=== PATIENT | male | born 1995 | race Caucasian/White ===

== ENCOUNTER 2022-03-29 10:32 | Emergency (ER) | payer OTHER, SELFPAY ==
[2022-03-29 10:42] VITALS: BP 134/87; PULSE 91; RESP 18; TEMP 36.9; O2SAT 100
--- NOTE | 2022-03-29 11:09 | ED.URI ---
HPI - URI/Sore Throat General Chief Complaint: Upper Respiratory Infection Stated Complaint: Headache,Cough,Congestion Time Seen by Provider: 03/29/22 11:04 Source: patient Mode of arrival: ambulatory Limitations: no limitations History of Present Illness HPI Narrative: Patient presents today with a 6 day history of cough, sore throat, congestion. Reports he ran a fever initially, but is no longer. Girlfriend was diagnosed with influenza a recently. He has been taking DayQuil, NyQuil, and Mucinex with mild relief. Denies shortness of breath or chest pain. Related Data Home Medications Medication Instructions Recorded Confirmed No Home Medications 03/29/22 03/29/22 Allergies Allergy/AdvReac Type Severity Reaction Status Date / Time No Known Allergies Allergy Verified 03/29/22 10:47 Review of Systems Review of Systems: CONSTITUTIONAL: Denies body aches, chills, or sweats.+ Fever-resolved EYES: Denies visual changes, redness, or discharge. ENT: Denies rhinorrhea, or otalgia.+ congestion, sore throat CARDIOVASCULAR: Denies chest pain, palpitations, or edema. RESPIRATORY:+ cough, shortness of breath GASTROINTESTINAL: Denies abdominal pain, nausea, vomiting, or diarrhea. GENITOURINARY: Denies dysuria or hematuria. SKIN: Denies rash, itching, or wounds. MUSCULOSKELETAL: Denies back pain, joint pain, or myalgia. NEUROLOGIC: Denies headache, numbness, tingling, or weakness. PSYCH: Denies depression or anxiety. PMFSH Comments At time of signature, I have reviewed and agree with nursing past medical, surgical, social and family history unless otherwise noted. Please see nursing chart for further information. There is no relevant family history pertinent to the presenting complaint Exam Narrative: GENERAL: Well-appearing, well-nourished, and in no acute distress. HEAD: Normocephalic, atraumatic. EYES: EOMI. No redness or drainage. Conjunctivae normal. ENT: Mucous membranes pink and moist. Nares clear. No rhinorrhea. TMs normal bilaterally. Throat mildly erythematous without edema or exudate. Uvula midline. NECK: Normal AROM. Supple. No lymphadenopathy. CHEST: No respiratory distress. Clear to auscultation. HEART: Regular rate and rhythm. No murmur appreciated. Normal peripheral pulses. EXTREMITIES: Normal range of motion. No edema. SKIN: Warm, dry, no rash. Capillary refill normal. Normal skin turgor. NEURO: No focal deficits. Alert and oriented x3. Gait steady. PSYCH: Normal affect. No signs of depression or anxiety. Course Course Level of Care: Express Care Visit Vital Signs Vital signs: Vital Signs Temperature 98.4 F 03/29/22 10:42 Pulse Rate 91 03/29/22 10:42 Respiratory Rate 18 03/29/22 10:42 Blood Pressure 134/87 03/29/22 10:42 Pulse Oximetry 100 03/29/22 10:42 Oxygen Delivery Room Air 03/29/22 10:42 Temperature 98.4 F 03/29/22 10:42 Pulse Rate 91 03/29/22 10:42 Respiratory Rate 18 03/29/22 10:42 Blood Pressure 134/87 03/29/22 10:42 Pulse Oximetry 100 03/29/22 10:42 Oxygen Delivery Room Air 03/29/22 10:42 Reviewed. Pt has been instructed to follow up with his PCP regarding his elevated blood pressure today. MDM - URI/Sore Throat Differential Diagnosis Differential diagnosis: Likely upper respiratory infection, sinusitis, viral infection and influenza Lab Data Attestation: I reviewed the patient's lab results. Labs: Influenza A Screen Negative Reference Range: Negative Influenza B Screen Negative Reference Range: Negative Critical Care Time Critical Care Time Critical Care Time: No Discharge Plan Discharge Clinical Impression: Influenza A Patient Disposition: Home, Self-Care Condition: Stable Instructions: Influenza (DC) Additional Instructions: You have tested positive for influenz
== END 2022-03-29 11:17 | disposition home or self-care (01) ==
PROVIDERS: Emergency Provider Nurse Practitioner
DX: J10.1 Influenza due to other identified influenza virus with other respiratory manifestations (principal)
CPT/HCPCS: 87804; 99213; G0463

== ENCOUNTER 2025-01-08 23:21 | Emergency (ER) | payer SELFPAY ==
[2025-01-08 23:21] VITALS: BP 126/103; PULSE 94; RESP 16; TEMP 37.3; O2SAT 100
--- OUTSIDE RECORDS SUMMARY | 2025-01-08 23:24 | XMS_ITS | Clinical Summary ---
Author Organization [facility] Address [address] [place] [address] Care Team Providers Care Cone Examiner Name Role Phone Unknown, Notinfile Primary Care Provider Unavail able Allergies No known active allergies Medications busPIRone (BUSPAR) 10 mg tablet Take by mouth Active amoxicillin (amoxicillin) 500 mg tablet/capsule Take 1 tablet/capsule (500 mg total) by mouth 3 (three) times a day 30 tablet/capsu le 9 Active Additional Information Patient not taking.Reported on 09/13/2024 naproxen (NAPROSYN) 500 mg tablet Take 1 tablet (500 mg total) by mouth 2 (two) times a day as needed for pain Take with food. 30 tablet 0 Active Additional Information Patient not taking.Reported on 09/13/2024 Active Problems Problem Noted Date Diagnosed Date Atypical chest pain 08/26/2017 Assessment & Plan (08/26/2017 7:03 PM CDT): Secondary to panic attack. Currently does not have any chest pain. EKG negative for ST changes x2 Troponin x2 negative. Patient is being discharged with recommendations to avoid marijuana use, regular exercise. Patient's mother is worried about his intermittent symptoms. Will give prescription for outpatient stress echocardiogram. This way echocardiogram will also evaluate the septum. The this was discussed with the patient patient's mother present in the room. They agreed with the plan. He is going to schedule his stress test as soon as possible. Meantime will avoid any kind of recreational drug use, avoid smoking. Marijuana use 08/26/2017 Assessment & Plan (08/26/2017 5:29 PM CDT): The patient smokes marijuana occasionally. Last marijuana use was yesterday and before that it was about a week ago. Both marijuana use was associated with panic attack tachycardia. Recommended avoid a smoking pot. Patient verbalized understanding. Panic attack 08/26/2017 Assessment & Plan (08/26/2017 7:02 PM CDT): The patient describes classic panic attack symptoms after smoking marijuana. This was discussed with the patient. He understands what is happening to him. He already had an idea that he is having panic attack. His brother is present in the room and he has panic attacks 2. So apparently this runs in the family. Recommended regular exercise, will give propranolol small dose p.r.n.. Recommending establish primary care physician. Also I would like to mention that on August 15 patient was in our emergency room with abdominal pain. With was extensively worked up and did not find any acute issues, he had CT scan of abdomen and pelvis being normal CT, urinalysis did not show any infection and his blood work was normal. Tobacco use 08/26/2017 Assessment & Plan (08/26/2017 5:36 PM CDT): Patient is very motivated to quit smoking. His last cigarette was yesterday. Smoking cessation recommended and counseling was provided. Social History Tobacco Use Types Packs/Day Years Used Date Smoking Tobacco: Every Day Smokeless Tobacco: Never Alcohol Use Standard Drinks/Week Comments Yes 0 (1 standard drink = 0.6 oz pur e alcohol) Sex and Gender Information Value Date Recorded Sex Assigned at Not on file Legal Sex Male 11:28 PM ICU STAFF NURSE Gender Identity Not on file Sexual Orientation Not on file Obstetrics History Last Filed Vital Signs Vital Sign Reading Time Taken Comments Blood Pressure 147/88 09/13/2024 6:24 PM CDT Pulse 61 09/13/2024 6:24 PM CDT Temperature 37.3 C (99.2 F) 09/13/2024 6:24 PM CDT Respiratory Rate 16 09/13/2024 6:24 PM CDT Oxygen Saturation 99% 09/13/2024 6:24 PM CDT Inhaled Oxygen Concentration - - Weight 95.9 kg (211 lb 6.4 oz) 09/13/2024 6:24 P M CDT Height 182.9 cm (6' 0.01) 09/13/2024 6:24 PM CD T Body Mass Index 28.66 09/13/2024 6:24 PM CDT Plan of Treatment Health Maintenance Due Date Last Done Comments Depression Screening 1996 Hepatitis C Screening 1996 HPV Vaccines (2 - Male 3-dos e series) 01/08/2014 12/11/2013 Regular Well Visit/Exam 18-64 2014 Pneumococcal vaccine <65 (1 of 2 - PCV) 08/07/2015 DTaP/Tdap/Td Vaccine (7 - Td or Tdap) 10/22/2016 10/22/2006, 08/30/2000, 08/12/1997, Additional history exists Influenza Vaccine (#1) 2024 Hepatitis B Screening Completed 02/05/1997 , 1996, 1996 Varicella Vaccines Completed 10/22/2006, 11/25/2001 Insurance [facility] Advance Directives For more information, please contact: [phone] * Full Code (Latest Code Status on File) Date Activated Date Inactivated Comments 08/26/2017 2:09 PM 08/26/2017 9:18 PM Care Teams Cone Examiner Relationship Specialty Start Date End Date Unknown, Notinfile PCP - General 08/26/17
--- OUTSIDE RECORDS SUMMARY | 2025-01-08 23:24 | XMS_ITS | Clinical Summary ---
Author Organization [facility] Address [address] [place] [address] Phone Care Team Providers Care Coiler Name Role Phone Stew Odell APRN, RADIOLOGIC THERAPIST Primary Care Pro vider Allergies No known active allergies Medications BusPIRone HCl (BUSPAR PO) Take by mouth. Act abraham ciprofloxacin-de xamethasone (CIPRODEX) 0.3-0.1 % SuspensionIndica tions:Acute otitis externa of right ear, unspecified type Apply 4 drops to affected ear(s) BID x 7 days 1 Bottle 0 Active Additional Information Patient not taking.Reported on 12/07/2021 Active Problems No known active problems Family History Medical History Relation Name Comments Crohn's Disease Mother Relation Name Status Comments Father Alive Mother Alive Social History Tobacco Use Types Packs/Day Years Used Date Smoking Tobacco: Every Day Cigarettes Smokeless Tobacco: Never Alcohol Use Standard Drinks/Week Comments Yes 0 (1 standard drink = 0.6 oz pur e alcohol) socially Sex and Gender Information Value Date Recorded Sex Assigned at Not on file Legal Sex Male 11:41 PM CDT Gender Identity Not on file Sexual Orientation Not on file Last Filed Vital Signs Vital Sign Reading Time Taken Comments Blood Pressure 140/78 12/07/2021 1:18 PM CDT Pulse 92 12/07/2021 1:18 PM CDT Temperature 37 C (98.6 F) 12/07/2021 1:18 PM CDT Respiratory Rate 16 12/07/2021 1:18 PM CDT Oxygen Saturation 99% 12/07/2021 1:18 PM CDT Inhaled Oxygen Concentration - - Weight 108.9 kg (240 lb) 12/07/2021 1:18 PM CDT Height 182.9 cm (6') 02/14/2018 4:00 AM CDT Body Mass Index 32.55 02/14/2018 4:00 AM CDT Plan of Treatment Health Maintenance Due Date Last Done Comments Hepatitis C Virus (HCV) Screening 1996 Human Papillomavirus (HPV) Immunization (2 - Male 3-dose series) 01/08/2014 12/11/2013 Influenza Immunization (#1) 2024 SARS-COV-2 Immunization ( season) 2024 Respiratory Syncytial Virus (RSV) Immunization (Adult) (1 - 1-dose 75+ series) 08/07/2071 Hepatitis B Immunization Completed 997, 1996, 1996 DTaP/Tdap/Td Immunization Discontinued 2006, 08/30/2000, 08/12/1997, Additional history exists TdaP Immunization Completed 10/22/2006 Meningococcal Immunization (ACWY) Completed 12/11/2013, 09/06/2008 Pneumococcal Immunization Combined Aged Out No longer eligible based on patient's age to complete this topic Rotavirus Immunization Aged Out No lo nger eligible based on patient's age to complete this topic Care Teams Coiler Relationship Specialty Start Date End Date Stew Odell, SEAL EXTRUSION OPERATOR, RADIOLOGIC THERAPIST [address] [facility] [address]AT[address] [facility] [address] [place] [address] PCP - General Advanced Practice Nurse 10/15/17
--- NOTE | 2025-01-09 00:14 | PC.NURSE ---
1st call no answer
--- NOTE | 2025-01-09 00:28 | PC.NURSE ---
2nd call no answer
--- NOTE | 2025-01-09 01:08 | PC.NURSE ---
last call no answer
--- OUTSIDE RECORDS SUMMARY | 2025-01-09 01:14 | XMS_ITS | Clinical Summary ---
Author Organization [facility] Address [address] [place] [address] Phone Care Team Providers Care Silk Screen Repairer Name Role Phone Stew Odell APRN, RAIL TECHNICIAN Primary Care Pro vider Allergies No known [...] age to complete this topic Care Teams Silk Screen Repairer Relationship Specialty Start Date End Date Stew Odell, FIRE BOAT ENGINEER, RAIL TECHNICIAN [address] [facility] [address] AMAT[address] B [facility] [address] [place] [address] PCP - General Advanced Practice Nurse 10/15/17
== END 2025-01-09 00:14 | disposition left against medical advice (07) ==
LOC: ANHED 01-09 01:12
DX: K08.89 Other specified disorders of teeth and supporting structures (principal)
CPT/HCPCS: 99199